=== PATIENT | female | born 1940 | race Caucasian/White ===

== ENCOUNTER → 2017-03-15 | Outpatient (CLI) | payer MEDICARE, BC ==
[~2017-03-15] MED LIST: DENOSUMAB 60 MG/ML 1 ML SYRINGE SQ ONE
[2017-03-15 10:58] VITALS: BP 115/58; PULSE 73; RESP 16; TEMP 98.2
== END ==
LOC: PROCWHC3 10:06
PROVIDERS: ATTEND Family Medicine
DX: M81.0 Age-related osteoporosis without current pathological fracture (principal)
CPT/HCPCS: 96372; J0897

== ENCOUNTER → 2017-03-15 | Outpatient (CLI) | payer MEDICARE, BC ==
--- NOTE | 2017-03-16 09:50 | MM ---
Reason for exam: screening (asymptomatic). Last mammogram was performed 1 year and 3 months ago. History: Patient is postmenopausal and has history of other cancer at age 71. Family history of breast cancer in sister at age 61. Physical Findings: A clinical breast exam by your physician is recommended on an annual basis and results should be correlated with mammographic findings. MG 3D Screening Mammo W/Cad Bilateral CC and MLO view(s) were taken. Prior study comparison: December 22, 2015, bilateral MG 3d screening mammo w/cad. September 09, 2002, bilateral screening mammogram. There are scattered fibroglandular densities. No significant changes when compared with prior studies. ASSESSMENT: Benign, BI-RAD 2 RECOMMENDATION: Routine screening mammogram of both breasts in 1 year.
== END ==
LOC: RADMAMWWP 09:29
PROVIDERS: ATTEND Family Medicine
DX: Z12.31 Encounter for screening mammogram for malignant neoplasm of breast (principal)
CPT/HCPCS: 77063; G0202

== ENCOUNTER → 2017-09-17 | Outpatient (CLI) | payer MEDICARE, BC ==
[2017-09-17 10:12] VITALS: BP 128/73; PULSE 81; RESP 18; TEMP 98.1
== END | disposition home or self-care (01) ==
LOC: PROCWHC3 09:45
PROVIDERS: ATTEND Family Medicine
DX: M81.0 Age-related osteoporosis without current pathological fracture (principal)
CPT/HCPCS: 96372; J0897

== ENCOUNTER → 2018-03-18 | Outpatient (CLI) | payer MEDICARE, BC ==
[2018-03-18 09:32] VITALS: BP 122/73; PULSE 86; RESP 16; TEMP 98
== END | disposition home or self-care (01) ==
LOC: PROCWHC3 09:17
PROVIDERS: ATTEND Family Medicine
DX: M81.0 Age-related osteoporosis without current pathological fracture (principal)
CPT/HCPCS: 96372; J0897

== ENCOUNTER → 2018-05-03 | Day surgery (SDC) | payer MEDICARE, BC ==
[2018-04-30 14:27] VITALS: BMI 21.1
[~2018-05-03] MED LIST changes: -DENOSUMAB 60 MG/ML 1 ML SYRINGE SQ ONE; +LACTATED RINGERS 1,000 ML IV SCH; +LIDOCAINE 1% 20 ML VIAL (10MG/ML) FOR IV START INTRADERMA ONE; +PROPOFOL 10 MG/ML 20 ML VIAL IV ONE
[2018-05-03 07:57] VITALS: RESP 16; TEMP 97.6
--- NOTE | 2018-05-03 08:36 | P.PCN ---
Date of Procedure: 05/03/18 Procedure(s) Performed: Brief history: Patient is a pleasant 77-year-old white female, scheduled for an elective upper endoscopy as well as colonoscopy as a part of evaluation of GERD/Montoya's esophagus and history of colon polyps Procedure performed: Esophagogastroduodenoscopy with biopsy Colonoscopy with snare polypectomy Preoperative diagnosis: GERD/surveillance of Montoya's esophagus History of colon polyps Anesthesia: MAC Procedure: After informed consent was obtained from the patient was brought into the endoscopy unit and IV sedation was administered by anesthesia under continuous monitoring. Initially upper endoscopy was done. The Olympus GF 160 video endoscope was inserted inserted into the mouth and esophagus intubated without any difficulty and was gradually advanced into the stomach and duodenum and carefully examined. The bulb and second part of the duodenum appeared normal. The scope was then withdrawn into the stomach adequately insufflated with air and upon careful examination the antrum and body, cardia and fundus appeared normal. The scope was then withdrawn into the esophagus. The GE junction was located at 34 cm to the incisors. Moderate size hiatal hernia noted. There was long segment Montoya's esophagus extending from 30-34 cm from the incisors and multiple biopsies were done from this area. Rest of the esophagus appeared normal. Patient tolerated the procedure well. At this time the patient continued to remain sedation. Initial digital rectal examination was normal. Olympus CF 160 video colonoscope was then inserted into the rectum and gradually advanced to the cecum without any difficulty. Careful examination was performed as the scope was gradually being withdrawn. The prep was excellent. The cecum, appeared normal. In the ascending colon there was a 5 mm and a 7 mm flat polyps removed by snare polypectomy. Rest of the ascending colon, transverse colon, descending colon, appeared normal; there was another 5 mm flat polyp removed by snare polypectomy. sigmoid colon and rectum appeared normal. Retroflexion was performed in the rectum and no lesions were noted. Patient tolerated the procedure well. Impression: 1. Upper endoscopy revealed long segment Montoya's esophagus extending from 30- 34 cm from the incisors, status post multiple biopsies and moderate size hiatal hernia 2. Colonoscopy revealed 5 mm and 1 cm flat ascending colon polyp status post polypectomy and 5 mm sigmoid colon polyp, status post snare polypectomy. Recommendations: Findings of this examination were discussed with the patient as well as his family. She was advised to follow with the biopsy results. She can have a repeat upper endoscopy as well as colonoscopy in 3 years.
[2018-05-03 08:56] VITALS: BP 128/75; PULSE 80
== END | disposition home or self-care (01) ==
LOC: ORWHC2ENDO 07:22
PROVIDERS: ATTEND Internal Medicine Gastroenterology
DX: K22.70 Barrett's esophagus without dysplasia (principal); D12.2 Benign neoplasm of ascending colon; D12.5 Benign neoplasm of sigmoid colon; K21.9 Gastro-esophageal reflux disease without esophagitis; Z86.010 Personal history of colon polyps; K44.9 Diaphragmatic hernia without obstruction or gangrene; I10 Essential (primary) hypertension; E78.5 Hyperlipidemia, unspecified; Z79.899 Other long term (current) drug therapy
CPT/HCPCS: 43239; 45385; 88305

== ENCOUNTER → 2018-08-30 | Outpatient (CLI) | payer MEDICARE, BC ==
--- NOTE | 2018-09-04 08:30 | MM ---
Reason for exam: screening (asymptomatic). Last mammogram was performed 1 year and 5 months ago. History: Patient is postmenopausal and has history of other cancer at age 71. Family history of breast cancer in sister at age 61. Physical Findings: A clinical breast exam by your physician is recommended on an annual basis and results should be correlated with mammographic findings. MG 3D Screening Mammo W/Cad Bilateral CC and MLO view(s) were taken. Prior study comparison: March 15, 2017, bilateral MG 3d screening mammo w/cad. December 22, 2015, bilateral MG 3d screening mammo w/cad. The breast tissue is heterogeneously dense. This may lower the sensitivity of mammography. No suspicious abnormality. No significant changes when compared with prior studies. ASSESSMENT: Negative, BI-RAD 1 RECOMMENDATION: Routine screening mammogram of both breasts in 1 year.
== END | disposition home or self-care (01) ==
LOC: RADMAMWWP 08:59
PROVIDERS: ATTEND Family Medicine
DX: Z12.31 Encounter for screening mammogram for malignant neoplasm of breast (principal)
CPT/HCPCS: 77063; 77067

== ENCOUNTER → 2018-09-23 | Outpatient (CLI) | payer MEDICARE, BC ==
[~2018-09-23] MED LIST changes: +DENOSUMAB 60 MG/ML 1 ML SYRINGE SQ ONE; -LACTATED RINGERS 1,000 ML IV SCH; -LIDOCAINE 1% 20 ML VIAL (10MG/ML) FOR IV START INTRADERMA ONE; -PROPOFOL 10 MG/ML 20 ML VIAL IV ONE
[2018-09-23 13:10] VITALS: BP 139/73; PULSE 89; RESP 16; TEMP 98.2
== END | disposition home or self-care (01) ==
LOC: PROCWHC3 12:49
PROVIDERS: ATTEND Family Medicine
DX: M81.0 Age-related osteoporosis without current pathological fracture (principal)
CPT/HCPCS: 96372; J0897

== ENCOUNTER → 2019-03-25 | Outpatient (CLI) | payer MEDICARE, BC ==
[2019-03-25 14:47] VITALS: BP 148/74; PULSE 77; RESP 16; TEMP 98.3
== END | disposition home or self-care (01) ==
LOC: PROCWHC3 14:19
PROVIDERS: ATTEND Family Medicine
DX: M81.0 Age-related osteoporosis without current pathological fracture (principal)
CPT/HCPCS: 96372; J0897

== ENCOUNTER → 2019-09-30 | Outpatient (CLI) | payer MEDICARE, BC ==
[~2019-09-30] MED LIST changes: +DENOSUMAB 60 MG/ML 1 ML SYRINGE SQ NR; -DENOSUMAB 60 MG/ML 1 ML SYRINGE SQ ONE
[2019-09-30 13:07] VITALS: BP 147/85; PULSE 80; RESP 16; TEMP 97.8
== END | disposition home or self-care (01) ==
LOC: PROCWHC3 12:49
PROVIDERS: ATTEND Family Medicine
DX: M81.0 Age-related osteoporosis without current pathological fracture (principal)
CPT/HCPCS: 96372; J0897

== ENCOUNTER → 2020-04-01 | Outpatient (CLI) | payer MEDICARE, BC ==
[~2020-04-01] MED LIST changes: -DENOSUMAB 60 MG/ML 1 ML SYRINGE SQ NR; +DENOSUMAB 60 MG/ML 1 ML SYRINGE SQ ONE
[2020-04-01 10:46] VITALS: BP 119/68; PULSE 81; RESP 16; TEMP 98
== END | disposition home or self-care (01) ==
LOC: PROCWHC3 10:22
PROVIDERS: ATTEND Family Medicine
DX: M81.0 Age-related osteoporosis without current pathological fracture (principal)
CPT/HCPCS: 96372; J0897

== ENCOUNTER → 2020-04-16 | Outpatient (CLI) | payer MEDICARE, BC ==
--- NOTE | 2020-04-19 09:50 | MM ---
Reason for exam: screening (asymptomatic). Last mammogram was performed 1 year and 8 months ago. History: Patient is postmenopausal and has history of other cancer at age 71. Family history of breast cancer in sister at age 61. Physical Findings: A clinical breast exam by your physician is recommended on an annual basis and results should be correlated with mammographic findings. MG 3D Screening Mammo W/Cad Bilateral CC and MLO view(s) were taken. Prior study comparison: August 30, 2018, bilateral MG 3d screening mammo w/cad. March 15, 2017, bilateral MG 3d screening mammo w/cad. The breast tissue is heterogeneously dense. This may lower the sensitivity of mammography. There is no discrete abnormality. No significant changes when compared with prior studies. ASSESSMENT: Negative, BI-RAD 1 RECOMMENDATION: Routine screening mammogram of both breasts in 1 year.
== END | disposition home or self-care (01) ==
LOC: RADMAMWWP 09:00
PROVIDERS: ATTEND Family Medicine
DX: Z12.31 Encounter for screening mammogram for malignant neoplasm of breast (principal)
CPT/HCPCS: 77063; 77067

== ENCOUNTER → 2020-10-04 | Outpatient (CLI) | payer MEDICARE, BC ==
[~2020-10-04] MED LIST changes: +DENOSUMAB 60 MG/ML 1 ML SYRINGE SQ NR; -DENOSUMAB 60 MG/ML 1 ML SYRINGE SQ ONE
[2020-10-04 10:32] VITALS: BP 147/83; PULSE 96; RESP 16; TEMP 97.6
== END | disposition home or self-care (01) ==
LOC: PROCWHC3 10:06
PROVIDERS: ATTEND Family Medicine
DX: M81.0 Age-related osteoporosis without current pathological fracture (principal)
CPT/HCPCS: 96372

== ENCOUNTER → 2021-04-06 | Outpatient (CLI) | payer MEDICARE, BC ==
[2021-04-06 09:03] VITALS: BP 127/61; PULSE 91; RESP 16; TEMP 98.6
== END ==
LOC: PROCWHC3 08:55
PROVIDERS: ATTEND Family Medicine
DX: M81.0 Age-related osteoporosis without current pathological fracture (principal); Z91.041 Radiographic dye allergy status
CPT/HCPCS: 96372; J0897

== ENCOUNTER → 2021-06-03 | Outpatient (CLI) | payer MEDICARE, BC ==
--- NOTE | 2021-06-03 14:53 | CT ---
EXAMINATION TYPE: CT abdomen pelvis wo con DATE OF EXAM: 06/03/2021 HISTORY: Calculus of kidney pelvic pain with hematuria. CT DLP: 342.8 mGycm. Automated Exposure Control for Dose Reduction was Utilized. TECHNIQUE: CT scan of the abdomen and pelvis is performed without oral or IV contrast. COMPARISON: NONE FINDINGS: Within the limitations of a non-contrast study, the following observations are made. LUNG BASES: No significant abnormality is appreciated. LIVER/GB: Cholecystectomy clips are seen. PANCREAS: No significant abnormality is seen. SPLEEN: No significant abnormality is seen. ADRENALS: No significant abnormality is seen. KIDNEYS: No renal stones or hydronephrosis is seen bilaterally. No intraluminal calculus in the bladd er. BOWEL: No suspicious small or large bowel dilatation. A few distal sigmoid colonic diverticula. No CT evidence for acute diverticulitis. GENITAL ORGANS: Uterus surgically absent. Scattered pelvic phleboliths LYMPH NODES: No greater than 1cm abdominal or pelvic lymph nodes are appreciated. OSSEOUS STRUCTURES: Dextroconvex scoliosis centered at L2-L3 level. Reversal of normal lumbar lordosi s. Moderate to severe multilevel disc space narrowing and spurring with multilevel vacuum disc phenom enon. Prominent Schmorl node inferior T12 endplate. Multilevel facet arthropathy mid to lower lumbar spine. Osseous structures are demineralized. OTHER: Symmetric lateral muscular atrophy bilateral thigh region. Moderate calcified plaque in the ec tatic abdominal aorta. IMPRESSION: No renal stones or hydronephrosis is seen bilaterally. No acute findings are seen to acco unt for pelvic pain and hematuria. If symptoms of hematuria persists further investigation with CT ur ogram would be warranted.
== END | disposition home or self-care (01) ==
LOC: RADCTMAIN 13:20
PROVIDERS: ATTEND Nurse Practitioner Adult Health
DX: R10.2 Pelvic and perineal pain (principal); R31.9 Hematuria, unspecified
CPT/HCPCS: 74176

== ENCOUNTER → 2021-06-30 | Outpatient (CLI) | payer MEDICARE, BC ==
[2021-06-30 09:47] LABS: African American GFR (CKD) >90 (>60 ml/min/1.73 sqM); Blood Urea Nitrogen 15 mg/dL (7-17); Non-African American GFR(CKD) 85 (>60 ml/min/1.73 sqM)
--- NOTE | 2021-06-30 11:51 | CT ---
EXAMINATION TYPE: CT urogram wo/w con DATE OF EXAM: 06/30/2021 HISTORY: Hematuria CT DLP: 1931mGycm Automated Exposure Control for Dose Reduction was Utilized. CONTRAST: CT scan of the abdomen and pelvis is performed without oral and without and with IV Contrast, patient injected with 100 ml mL of Isovue 300. Urogram protocol with 3-D reconstructed images created on an independent workstation and reviewed. COMPARISON: CT abdomen and pelvis June 03, 2021 FINDINGS: KUB: Noncontrast images redemonstrate no renal calculi bilaterally. Postcontrast images show symmetri c cortical medullary uptake and excretion without concerning solid or cystic renal mass identified bi laterally. There is successful opacification of the entire ureters on the 4 minute delayed images wit hout calculus or obstructing soft tissue lesion. No intraluminal calculus or suspicious mass in the u rinary bladder. LUNG BASES: No significant abnormality is appreciated. LIVER/GB: Cholecystectomy clips are redemonstrated. PANCREAS: No significant abnormality is seen. SPLEEN: No significant abnormality is seen. ADRENALS: No significant abnormality is seen. BOWEL: No suspicious small or large bowel dilatation. A few distal sigmoid colonic diverticula are ag ain seen. No CT evidence for acute diverticulitis. GENITAL ORGANS: Uterus surgically absent. Scattered pelvic phleboliths are redemonstrated. LYMPH NODES: No greater than 1cm abdominal or pelvic lymph nodes are appreciated. OSSEOUS STRUCTURES: Dextroconvex scoliosis centered at L2-L3 level is redemonstrated. Reversal of nor mal lumbar lordosis centered at L1 level. Moderate to severe multilevel disc space narrowing and spur ring with multilevel vacuum disc phenomenon in the lumbar spine. Prominent Schmorl node inferior T12 endplate is redemonstrated. Multilevel facet arthropathy mid to lower lumbar spine. Osseous structure s are demineralized. Moderate axial joint space loss redemonstrated. OTHER: Symmetric lateral muscular atrophy bilateral thigh region there is again seen. [id number] e calcified plaque in the ectatic abdominal aorta extending into branch vessels is redemonstrated. IMPRESSION: No findings are seen to account for symptoms of hematuria.
== END | disposition home or self-care (01) ==
LOC: RADCTMAIN 06-29 11:14
PROVIDERS: ATTEND Family Medicine
DX: R31.9 Hematuria, unspecified (principal)
CPT/HCPCS: 82565; 84520; 74178; 36415; 74400; Q9967

== ENCOUNTER 2021-07-13 10:55 | Emergency (ER) | payer MEDICARE, BC ==
[2021-07-13 11:04] VITALS: RESP 18
[2021-07-13] MEDS ORDERED: SODIUM CHLORIDE 0.9% 1,000 ML IV STA (11:55)
[2021-07-13] MEDS ORDERED: MORPHINE SULFATE 4 MG/ML SYRINGE IVP STA (11:55)
[2021-07-13 12:04] LABS: Appearance,Urine Cloudy (Clear); Bacteria,Urine Rare /hpf; Bilirubin,Urine Negative (Negative); Blood,Urine Moderate (Negative); Color,Urine Light Yellow; Glucose,Urine (UA) Negative (Negative); Ketones,Urine Negative (Negative); Leukocyte Esterase,Urine Large (Negative); Nitrite,Urine Negative (Negative); PH, Urine 7.5 (5.0-8.0); Protein,Urine Trace (Negative); RBC,Urine 11 /hpf (0-5); Specific Gravity,Urine 1.011 (1.001-1.035); Squamous Epithelial Cell,Urine <1 /hpf (0-4); Urobilinogen,Urine <2.0 mg/dL (<2.0); WBC,Urine >182 /hpf (0-5)
[2021-07-13 12:34] LABS: Basophils % (A) 0 %; Eosinophils # (A) 0.1 k/uL (0-0.7); Eosinophils % (A) 1 %; HGB 13.6 gm/dL (11.4-16.0); Lymphocytes # (A) 2.9 k/uL (1.0-4.8); Lymphocytes % (A) 30 %; MCH 31.3 pg (25.0-35.0); Monocytes # (A) 0.4 k/uL (0-1.0); Monocytes % (A) 4 %; Neutrophils # (A) 5.9 k/uL (1.3-7.7); Neutrophils % (A) 62 %; Platelet Count 236 k/uL (150-450); RBC 4.35 m/uL (3.80-5.40); RDW 12.6 % (11.5-15.5); WBC 9.4 k/uL (3.8-10.6)
[2021-07-13 12:53] LABS: ALT 15 U/L (4-34); AST 25 U/L (14-36); African American GFR (CKD) >90 (>60 ml/min/1.73 sqM); Albumin 4.1 g/dL (3.5-5.0); Alkaline Phosphatase 39 U/L (38-126); Anion Gap 8 mmol/L; Blood Urea Nitrogen 11 mg/dL (7-17); Calcium 9.5 mg/dL (8.4-10.2); Carbon Dioxide 25 mmol/L (22-30); Chloride 103 mmol/L (98-107); Glucose 108 mg/dL (74-99); Non-African American GFR(CKD) 82 (>60 ml/min/1.73 sqM); Potassium 4.3 mmol/L (3.5-5.1); Sodium 136 mmol/L (137-145); Total Bilirubin 0.4 mg/dL (0.2-1.3); Total Protein 7.1 g/dL (6.3-8.2)
[2021-07-13] MEDS ORDERED: cefTRIAXone IN SWFI 1,000 MG/10 ML SYRINGE IVP STA (12:59)
--- NOTE | 2021-07-13 13:05 | ED ---
Female Urogenital HPI - General Chief complaint: Urogenital Stated complaint: female Time Seen by Provider: 07/13/21 11:43 Source: patient, RN notes reviewed Mode of arrival: ambulatory Limitations: no limitations - History of Present Illness Initial comments: Patient is an 81-year-old female that presents to the emergency department complaining of urinary tract infection symptoms with urgency, sensation the need to use restroom, and minor hematuria. Patient notes she has had urinalysis done at her primary care's office and nothing done about it. Patient notes that she has moderate pain. She notes that she has a high pain tolerance and usually doesn't complain. She no she can name or so for further evaluation. Patient was otherwise well-appearing in no apparent distress. She denied any chest pain first breath headache nausea vomiting diarrhea constipation fever fatigue chills. - Related Data Home Medications Medication Instructions Recorded Confirmed Latanoprost Ophth [Xalatan 0.005%] 1 drops BOTH EYES HS 03/15/17 04/06/21 Lovastatin [Mevacor] 10 mg PO DAILY 03/15/17 04/06/21 Cholecalciferol [Vitamin D3] 1,000 unit PO DAILY 09/17/17 04/06/21 Ranitidine HCl [Zantac] 150 mg PO HS 09/17/17 04/06/21 Denosumab [Prolia] 60 mg SQ Q180D 03/18/18 04/06/21 Calcium Carbonate [Tums] 750 mg PO DAILY 04/30/18 04/06/21 Gas-X Chewable 1 tab PO DAILY PRN 04/30/18 04/06/21 Lisinopril-Hctz 20-12.5 mg 1 tab PO DAILY 04/30/18 04/06/21 [Zestoretic 20-12.5] Previous Rx's Medication Instructions Recorded Cephalexin [Keflex] 500 mg PO Q6HR #40 cap 07/13/21 Allergies Allergy/AdvReac Type Severity Reaction Status Date / Time IVP CONTRAST DYE Allergy Rash/Hives Uncoded 07/13/21 11:05 Review of Systems ROS Statement: Those systems with pertinent positive or pertinent negative responses have been documented in the HPI. ROS Other: All systems not noted in ROS Statement are negative. Past Medical History Past Medical History: Cancer, GERD/Reflux, Hyperlipidemia, Hypertension, Osteoarthritis (OA) Additional Past Medical History / Comment(s): SKIN CA ON BACK. OSTEOPOROSIS. SPINAL STENOSIS. BARRETTS ESOPHAGUS. EPISODE OF PANCREATITIS LAST MONTH, GALLBLADDER REMOVED. History of Any Multi-Drug Resistant Organisms: None Reported Past Surgical History: Cholecystectomy, Hysterectomy Additional Past Surgical History / Comment(s): COLONOSCOPY, EGD. Past Anesthesia/Blood Transfusion Reactions: No Reported Reaction Past Psychological History: No Psychological Hx Reported Smoking Status: Never smoker Past Alcohol Use History: None Reported Past Drug Use History: None Reported - Past Family History Father Family Medical History: Cancer Mother Sister(s) Family Medical History: Cancer General Exam Limitations: no limitations General appearance: alert, in no apparent distress Head exam: Present: atraumatic, normocephalic, normal inspection Eye exam: Present: normal appearance, PERRL, EOMI. Absent: scleral icterus, conjunctival injection, periorbital swelling ENT exam: Present: normal exam, mucous membranes moist Neck exam: Present: normal inspection Respiratory exam: Present: normal lung sounds bilaterally. Absent: respiratory distress, wheezes, rales, rhonchi, stridor Cardiovascular Exam: Present: regular rate, normal rhythm, normal heart sounds. Absent: systolic murmur, diastolic murmur, rubs, gallop, clicks Extremities exam: Present: normal inspection, full ROM, normal capillary refill. Absent: tenderness, pedal edema, joint swelling, calf tenderness Neurological exam: Present: alert, oriented X3 Psychiatric exam: Present: normal affect, normal mood Skin exam: Present: warm, dry, intact, normal color. Absent: rash Course Vital Signs 07/13/21 11:00 Temperature 98.3 F Pulse Rate 68 Respiratory 18 Rate Blood Pressure 130/71 O2 Sat by Pulse 96 Oximetry Medical Decision Making - Medical Decision Making 81-year-old female complaining of urinary tract symptoms involving frequency/urgency and need to urinate. Labs, 1 L normal saline, 4 mg of morphine, ordered. Labs unremarkable, urinalysis shows large quantities of white blood cells several red blood cells and some bacteria. 1 g Rocephin ordered. Antibiotics Sent to pharmacy. Patient most likely has cystitis. Case discussed with Dr. eDal, patient discharge home. - Lab Data Result diagrams: 07/13/21 12:20 07/13/21 12:20 Lab Results 07/13/21 07/13/21 07/13/21 Range/Units 11:19 12:20 12:20 WBC 9.4 (3.8-10.6) k/uL RBC 4.35 (3.80-5.40) m/uL Hgb 13.6 (11.4-16.0) gm/dL Hct 40.0 (34.0-46.0) % MCV 92.0 (80.0-100.0) fL MCH 31.3 (25.0-35.0) pg MCHC 34.0 (31.0-37.0) g/dL RDW 12.6 (11.5-15.5) % Plt Count 236 (150-450) k/uL MPV 8.0 Neutrophils % 62 % Lymphocytes % 30 % Monocytes % 4 % Eosinophils % 1 % Basophils % 0 % Neutrophils # 5.9 (1.3-7.7) k/uL Lymphocytes # 2.9 (1.0-4.8) k/uL Monocytes # 0.4 (0-1.0) k/uL Eosinophils # 0.1 (0-0.7) k/uL Basophils # 0.0 (0-0.2) k/uL Sodium 136 L (137-145) mmol/L Potassium 4.3 (3.5-5.1) mmol/L Chloride 103 (98-107) mmol/L Carbon Dioxide 25 (22-30) mmol/L Anion Gap 8 mmol/L BUN 11 (7-17) mg/dL Creatinine 0.70 (0.52-1.04) mg/dL Est GFR (CKD-EPI)AfAm >90 (>60 ml/min/1.73 sqM) Est GFR (CKD-EPI)NonAf 82 (>60 ml/min/1.73 sqM) Glucose 108 H (74-99) mg/dL Calcium 9.5 (8.4-10.2) mg/dL Total Bilirubin 0.4 (0.2-1.3) mg/dL AST 25 (14-36) U/L ALT 15 (4-34) U/L Alkaline Phosphatase 39 (38-126) U/L Total Protein 7.1 (6.3-8.2) g/dL Albumin 4.1 (3.5-5.0) g/dL Urine Color Light Yellow Urine Appearance Cloudy H (Clear) Urine pH 7.5 (5.0-8.0) Ur Specific [place] 1.011 (1.001-1.035) Urine Protein Trace H (Negative) Urine Glucose (UA) Negative (Negative) Urine Ketones Negative (Negative) Urine Blood Moderate H (Negative) Urine Nitrite Negative (Negative) Urine Bilirubin Negative (Negative) Urine Urobilinogen <2.0 (<2.0) mg/dL Ur Leukocyte Esterase Large H (Negative) Urine RBC 11 H (0-5) /hpf Urine WBC >182 H (0-5) /hpf Ur Squamous Epith Cells <1 (0-4) /hpf Urine Bacteria Rare H (None) /hpf Disposition Clinical Impression: Cystitis Disposition: HOME SELF-CARE Condition: Stable Instructions (If sedation given, give patient instructions): Urinary Tract Infection in Women (ED) Additional Instructions: Please return to the Emergency Department if symptoms worsen or any other concerns. Follow-up with primary care 1-2 days. Take antibiotics as prescribed until complete. Increase fluids. Is patient prescribed a controlled substance at d/c from ED?: No Referrals: Claude Leonard MD [Primary Care Provider] - 1-2 days Time of Disposition: 13:04
[2021-07-13] MEDS ORDERED: PANTOPRAZOLE 40 MG/10 ML VIAL IVP STA (13:22)
[2021-07-13 13:29] VITALS: BP 137/80; PULSE 88; TEMP 98.4
== END 2021-07-13 13:32 | disposition home or self-care (01) ==
LOC: EC 10:55
DX: N30.90 Cystitis, unspecified without hematuria (principal); I10 Essential (primary) hypertension; E78.5 Hyperlipidemia, unspecified; K21.9 Gastro-esophageal reflux disease without esophagitis; M19.90 Unspecified osteoarthritis, unspecified site; Z79.899 Other long term (current) drug therapy
CPT/HCPCS: 36415; 80053; 85025; 81001; 87086; 99283; 96374; 96375 ×2; 96361; J2270; J0696; C9113

== ENCOUNTER 2021-08-24 00:49 | Emergency (ER) | payer MEDICARE, BC ==
[2021-08-24 02:18] VITALS: RESP 18
[2021-08-24 03:01] LABS: Appearance,Urine Cloudy (Clear); Bacteria,Urine Occasional /hpf; Bilirubin,Urine Negative (Negative); Blood,Urine Moderate (Negative); Budding Yeast,Urine Many /hpf; Color,Urine Yellow; Glucose,Urine (UA) Negative (Negative); Ketones,Urine Negative (Negative); Leukocyte Esterase,Urine Large (Negative); Nitrite,Urine Negative (Negative); PH, Urine 6.5 (5.0-8.0); Protein,Urine Negative (Negative); RBC,Urine 11 /hpf (0-5); Specific Gravity,Urine 1.011 (1.001-1.035); Squamous Epithelial Cell,Urine 3 /hpf (0-4); Urobilinogen,Urine <2.0 mg/dL (<2.0); WBC,Urine >182 /hpf (0-5)
[2021-08-24 03:07] LABS: Basophils % (A) 0 %; Eosinophils # (A) 0.1 k/uL (0-0.7); Eosinophils % (A) 1 %; HCT 41.9 % (34.0-46.0); HGB 14.3 gm/dL (11.4-16.0); Lymphocytes # (A) 2.2 k/uL (1.0-4.8); Lymphocytes % (A) 21 %; MCH 31.7 pg (25.0-35.0); MCV 93.3 fL (80.0-100.0); Monocytes # (A) 0.5 k/uL (0-1.0); Monocytes % (A) 5 %; Neutrophils # (A) 7.7 k/uL (1.3-7.7); Neutrophils % (A) 72 %; Platelet Count 225 k/uL (150-450); RDW 12.4 % (11.5-15.5); WBC 10.7 k/uL (3.8-10.6)
[2021-08-24 03:40] LABS: Albumin 4.5 g/dL (3.5-5.0); Calcium 9.9 mg/dL (8.4-10.2); Potassium 3.8 mmol/L (3.5-5.1); Total Bilirubin 0.5 mg/dL (0.2-1.3); Total Protein 7.7 g/dL (6.3-8.2)
--- NOTE | 2021-08-24 03:51 | ED ---
Female Urogenital HPI - General Chief complaint: Urogenital Stated complaint: urogenital Time Seen by Provider: 08/24/21 01:48 Source: patient, family Mode of arrival: ambulatory - History of Present Illness Initial comments: 's patient is an 81-year-old woman presenting to be evaluated for suprapubic abdominal pain. She states that it started in the morning. She is not going into her second day of that. Patient states it is similar to previous pain she had associated with urinary tract infection. The patient is also noted that she is urinating frequently. She still has urgency urinate even after she has finished. Patient relates that the said initially developed in July. She had come here and was given course of antibiotics. She did have some improvement and subsequent only followed with a gynecologic urologist. She states that she did have cystoscopy and was told that this looked good. Over the past day to 2 she has had recurrence of symptoms. No fever or chills. No nausea or vomiting. No change in bowel movements. MD Complaint: dysuria Onset/Timin -: days(s) Location: suprapubic Radiation: non-radiating Severity: moderate Quality: cramping, burning Consistency: constant Worsens with: urination - Related Data Home Medications Medication Instructions Recorded Confirmed Latanoprost Ophth [Xalatan 0.005%] 1 drops BOTH EYES HS 03/15/17 04/06/21 Lovastatin [Mevacor] 10 mg PO DAILY 03/15/17 04/06/21 Cholecalciferol [Vitamin D3] 1,000 unit PO DAILY 09/17/17 04/06/21 Ranitidine HCl [Zantac] 150 mg PO HS 09/17/17 04/06/21 Denosumab [Prolia] 60 mg SQ Q180D 03/18/18 04/06/21 Calcium Carbonate [Tums] 750 mg PO DAILY 04/30/18 04/06/21 Gas-X Chewable 1 tab PO DAILY PRN 04/30/18 04/06/21 Lisinopril-Hctz 20-12.5 mg 1 tab PO DAILY 04/30/18 04/06/21 [Zestoretic 20-12.5] Previous Rx's Medication Instructions Recorded Cephalexin [Keflex] 500 mg PO Q6HR #40 cap 07/13/21 Cephalexin [Keflex] 500 mg PO Q6HR #28 cap 08/24/21 Phenazopyridine [Pyridium] 100 mg PO TID #6 tablet 08/24/21 Allergies Allergy/AdvReac Type Severity Reaction Status Date / Time IVP CONTRAST DYE Allergy Rash/Hives Uncoded 08/24/21 01:18 Review of Systems ROS Statement: Those systems with pertinent positive or pertinent negative responses have been documented in the HPI. ROS Other: All systems not noted in ROS Statement are negative. Constitutional: Denies: fever, chills Respiratory: Denies: cough, dyspnea Cardiovascular: Denies: chest pain, palpitations, edema Gastrointestinal: Reports: as per HPI, abdominal pain. Denies: nausea, vomiting, diarrhea, constipation Genitourinary: Reports: urgency, dysuria, frequency, hematuria Musculoskeletal: Denies: back pain Skin: Denies: rash Neurological: Denies: headache, weakness Past Medical History Past Medical History: Cancer, GERD/Reflux, Hyperlipidemia, Hypertension, Osteoarthritis (OA) Additional Past Medical History / Comment(s): SKIN CA ON BACK. OSTEOPOROSIS. SPINAL STENOSIS. BARRETTS ESOPHAGUS. EPISODE OF PANCREATITIS LAST MONTH, GALLBLADDER REMOVED. History of Any Multi-Drug Resistant Organisms: None Reported Past Surgical History: Cholecystectomy, Hysterectomy Additional Past Surgical History / Comment(s): COLONOSCOPY, EGD. Cystoscopy completed-new medication started for bladder spasms Past Anesthesia/Blood Transfusion Reactions: No Reported Reaction Past Psychological History: No Psychological Hx Reported Smoking Status: Never smoker Past Alcohol Use History: None Reported Past Drug Use History: None Reported - Past Family History Father Family Medical History: Cancer Mother Sister(s) Family Medical History: Cancer General Exam General appearance: alert, in no apparent distress Head exam: Present: atraumatic, normocephalic Eye exam: Present: normal appearance. Absent: scleral icterus, conjunctival injection Respiratory exam: Present: normal lung sounds bilaterally. Absent: respiratory distress, wheezes, rales, rhonchi, stridor Cardiovascular Exam: Present: regular rate, normal rhythm, normal heart sounds. Absent: systolic murmur, diastolic murmur, rubs, gallop GI/Abdominal exam: Present: soft. Absent: distended, tenderness, guarding, r ebound, rigid, mass, pulsatile mass, hernia Extremities exam: Present: normal inspection, normal capillary refill. Absent: pedal edema, calf tenderness Back exam: Present: normal inspection. Absent: CVA tenderness (R), CVA tenderness (L) Neurological exam: Present: alert Skin exam: Present: warm, dry, intact, normal color. Absent: rash Course Vital Signs 08/24/21 08/24/21 08/24/21 01:19 02:12 04:15 Temperature 98.6 F Pulse Rate 91 100 102 H Respiratory 16 18 18 Rate Blood Pressure 122/77 126/65 135/73 O2 Sat by Pulse 97 96 95 Oximetry Medical Decision Making - Lab Data Result diagrams: 08/24/21 02:52 08/24/21 02:52 Lab Results 08/24/21 08/24/21 08/24/21 Range/Units 02:09 02:52 02:52 WBC 10.7 H (3.8-10.6) k/uL RBC 4.50 (3.80-5.40) m/uL Hgb 14.3 (11.4-16.0) gm/dL Hct 41.9 (34.0-46.0) % MCV 93.3 (80.0-100.0) fL MCH 31.7 (25.0-35.0) pg MCHC 34.0 (31.0-37.0) g/dL RDW 12.4 (11.5-15.5) % Plt Count 225 (150-450) k/uL MPV 8.0 Neutrophils % 72 % Lymphocytes % 21 % Monocytes % 5 % Eosinophils % 1 % Basophils % 0 % Neutrophils # 7.7 (1.3-7.7) k/uL Lymphocytes # 2.2 (1.0-4.8) k/uL Monocytes # 0.5 (0-1.0) k/uL Eosinophils # 0.1 (0-0.7) k/uL Basophils # 0.0 (0-0.2) k/uL Sodium 136 L (137-145) mmol/L Potassium 3.8 (3.5-5.1) mmol/L Chloride 100 (98-107) mmol/L Carbon Dioxide 26 (22-30) mmol/L Anion Gap 10 mmol/L BUN 13 (7-17) mg/dL Creatinine 0.78 (0.52-1.04) mg/dL Est GFR (CKD-EPI)AfAm 83 (>60 ml/min/1.73 sqM) Est GFR (CKD-EPI)NonAf 72 (>60 ml/min/1.73 sqM) Glucose 111 H (74-99) mg/dL Calcium 9.9 (8.4-10.2) mg/dL Total Bilirubin 0.5 (0.2-1.3) mg/dL AST 23 (14-36) U/L ALT 14 (4-34) U/L Alkaline Phosphatase 44 (38-126) U/L Total Protein 7.7 (6.3-8.2) g/dL Albumin 4.5 (3.5-5.0) g/dL Urine Color Yellow Urine Appearance Cloudy H (Clear) Urine pH 6.5 (5.0-8.0) Ur Specific [place] 1.011 (1.001-1.035) Urine Protein Negative (Negative) Urine Glucose (UA) Negative (Negative) Urine Ketones Negative (Negative) Urine Blood Moderate H (Negative) Urine Nitrite Negative (Negative) Urine Bilirubin Negative (Negative) Urine Urobilinogen <2.0 (<2.0) mg/dL Ur Leukocyte Esterase Large H (Negative) Urine RBC 11 H (0-5) /hpf Urine WBC >182 H (0-5) /hpf Urine WBC Clumps Few H (None) /hpf Ur Squamous Epith Cells 3 (0-4) /hpf Urine Bacteria Occasional H (None) /hpf Urine Yeast (Budding) Many H (None) /hpf Disposition Clinical Impression: Urinary tract infection Disposition: HOME SELF-CARE Condition: Good Instructions (If sedation given, give patient instructions): Urinary Tract Infection in Women (ED) Prescriptions: Cephalexin [Keflex] 500 mg PO Q6HR #28 cap Phenazopyridine [Pyridium] 100 mg PO TID #6 tablet Is patient prescribed a controlled substance at d/c from ED?: No Referrals: Claude Leonard MD [Primary Care Provider] - 1-2 days
[2021-08-24] MEDS ORDERED: PHENAZOPYRIDINE 100 MG TAB PO ONE (04:30)
[2021-08-24 04:56] VITALS: BP 120/73; PULSE 98; TEMP 97.9
== END 2021-08-24 04:57 | disposition home or self-care (01) ==
LOC: EC 00:49
DX: N39.0 Urinary tract infection, site not specified (principal); I10 Essential (primary) hypertension; E78.5 Hyperlipidemia, unspecified; K21.9 Gastro-esophageal reflux disease without esophagitis; M19.90 Unspecified osteoarthritis, unspecified site; Z79.899 Other long term (current) drug therapy
CPT/HCPCS: 36415; 80053; 85025; 81001; 87086; 99284; 96365; J0696

== ENCOUNTER → 2021-10-11 | Outpatient (CLI) | payer MEDICARE, BC ==
[~2021-10-11] MED LIST changes: -DENOSUMAB 60 MG/ML 1 ML SYRINGE SQ NR; +DENOSUMAB 60 MG/ML 1 ML SYRINGE SQ ONE
[2021-10-11 13:46] VITALS: BP 161/81; PULSE 88; RESP 16; TEMP 97.9
== END ==
LOC: PROCWHC3 13:32
PROVIDERS: ATTEND Family Medicine
DX: M81.0 Age-related osteoporosis without current pathological fracture (principal); Z91.041 Radiographic dye allergy status
CPT/HCPCS: 96372; J0897

== ENCOUNTER → 2022-04-11 | Outpatient (CLI) | payer MEDICARE, BC ==
[~2022-04-11] MED LIST changes: +DENOSUMAB 60 MG/ML 1 ML SYRINGE SQ NR; -DENOSUMAB 60 MG/ML 1 ML SYRINGE SQ ONE
[2022-04-11 10:17] VITALS: BP 127/64; PULSE 69; RESP 16; TEMP 98.4
== END ==
LOC: PROCWHC3 09:56
PROVIDERS: ATTEND Family Medicine
DX: M81.0 Age-related osteoporosis without current pathological fracture (principal); Z91.041 Radiographic dye allergy status
CPT/HCPCS: 96372; J0897

== ENCOUNTER → 2023-04-17 | Outpatient (CLI) | payer MEDICARE, BC ==
[2023-04-17 13:47] VITALS: BP 137/72; PULSE 73; RESP 16; TEMP 98.2
== END ==
LOC: PROCWHC3 13:27
PROVIDERS: ATTEND Family Medicine
DX: M81.0 Age-related osteoporosis without current pathological fracture (principal)
CPT/HCPCS: 96372; J0897

== ENCOUNTER → 2023-10-19 | Outpatient (CLI) | payer MEDICARE, BC ==
[2023-10-19] MEDS: DENOSUMAB 60 MG/ML 1 ML SYRINGE SQ NR (13:00)
[2023-10-19 13:02] VITALS: BP 163/77; PULSE 79; RESP 16; TEMP 97.4
== END ==
LOC: PROCWHC3 12:52
PROVIDERS: ATTEND Family Medicine
DX: M81.0 Age-related osteoporosis without current pathological fracture (principal)
CPT/HCPCS: 96372; J0897

== ENCOUNTER → 2024-04-23 | Outpatient (CLI) | payer MEDICARE, BC ==
[~2024-04-23] MED LIST changes: -DENOSUMAB 60 MG/ML 1 ML SYRINGE SQ NR; +DENOSUMAB 60 MG/ML 1 ML SYRINGE SQ ONE
== END ==
LOC: EDSTATUS 12:17 → PROCWHC3 12:30
DX: M81.0 Age-related osteoporosis without current pathological fracture (principal)
CPT/HCPCS: 96372

== ENCOUNTER 2024-10-27 13:42 | Outpatient (CLI) | payer MEDICARE, BC ==
[2024-10-27] MEDS: DENOSUMAB 60 MG/ML 1 ML SYRINGE SQ NR (13:45)
[2024-10-27 13:50] VITALS: BP 152/89; PULSE 92; RESP 16; TEMP 98.2
== END 2024-10-28 08:43 | disposition home or self-care (01) ==
LOC: PROCWHC3 13:42
PROVIDERS: ATTEND Family Medicine
DX: M81.0 Age-related osteoporosis without current pathological fracture (principal)
CPT/HCPCS: 96372; J0897